=== PATIENT | female | born 1980 | race Caucasian/White ===

== ENCOUNTER 2017-04-27 11:26 | Emergency (ER) | payer BC ==
[2017-04-27 14:19] LABS: HEMOGLOBIN 12.5 gm/dl (12.3-15.3); RED BLOOD COUNT 4.46 M/UL (4.00-5.10); WHITE BLOOD COUNT 10.9 K/UL (4.5-11.0)
[2017-04-27 15:35] LABS: BUN/CREATININE RATIO 14 (0-10)
== END 2017-04-27 20:10 | disposition home or self-care (01) ==
LOC: ER1 11:26
PROVIDERS: Student in an Organized Health Care Education/Training Program
DX: R55 Syncope and collapse (principal); F32.9 Major depressive disorder, single episode, unspecified; J45.909 Unspecified asthma, uncomplicated; Z79.899 Other long term (current) drug therapy
CPT/HCPCS: 36415; 71010; 80053; 80307; 81001; 82550; 82553; 83874; 84484; 84703; 85025; 85379; 87086; 93005; 96360; 96361; 99284; G0480